=== PATIENT | male | born 1945 | race Caucasian/White ===

== ENCOUNTER → 2016-09-02 | Outpatient (CLI) | payer OTHER | END | disposition home or self-care (01) | LOC: GMAB 10:12 | PROVIDERS: ATTEND Family Medicine | DX: C61 Malignant neoplasm of prostate (principal); I10 Essential (primary) hypertension ==

== ENCOUNTER → 2017-12-31 | Outpatient (CLI) | payer OTHER | LOC: GMAE 12:55 | PROVIDERS: ATTEND Family Medicine | DX: R00.0 Tachycardia, unspecified (principal) ==

== ENCOUNTER → 2018-04-07 | Outpatient (CLI) | payer OTHER | LOC: GMAE 11:33 | PROVIDERS: ATTEND Family Medicine | DX: D50.0 Iron deficiency anemia secondary to blood loss (chronic) (principal) ==

== ENCOUNTER 2018-04-21 22:34 | Emergency (ER) | payer OTHER ==
--- NOTE | 2018-04-21 23:17 | ED.PDOC ---
History of Present Illness - General Chief Complaint: General Stated Complaint: WEAK FOR 4 DAYS Time Seen by Provider: 04/21/18 23:00 Source: patient Exam Limitations: no limitations - History of Present Illness Initial Comments: Patient presents because he was having anxiety about his hemoglobin level that he got today from Dr. Arguelles. The patient says that the blood was drawn two weeks ago so he is worried that it may have gone down even more. He first was diagnosed with anemia last month after he had an AMI and was awaiting a CABG. He says he was given blood at that time. After the surgery, he reports that a GI doctor did a colonoscopy and did not find anything but found two polyps in his stomach that were bleeding. They were removed. Patient has been on Plavix since the CABG. No symptoms at this time. His blood pressure went up when he started to get anxious. Timing/Duration: unsure Severity: moderate Improving Factors: nothing, eating Associated Symptoms: denies symptoms Allergies/Adverse Reactions: Allergies NO KNOWN ALLERGY Allergy (Verified 04/22/18 00:06) Home Medications: Ambulatory Orders Acetaminophen W/ Codeine [Tylenol W/ CODEINE #3] 1 ea PO Q4HR PRN 04/21/18 Aspirin [Aspirin EC Low Dose] 81 mg PO DAILY 04/21/18 Atorvastatin Calcium 40 mg PO DAILY 04/21/18 Metformin HCl [Metformin Hydrochloride] 500 mg PO BID 04/21/18 Metoprolol Tartrate 12.5 mg PO BID 04/21/18 Pantoprazole Sodium 40 mg PO DAILY 04/21/18 Potassium Chloride [Micro-K] 10 meq PO DAILY 04/21/18 Review of Systems - Review of Systems Constitutional: States: no symptoms reported EENTM: States: no symptoms reported Respiratory: States: no symptoms reported Cardiology: States: no symptoms reported Gastrointestinal/Abdominal: States: no symptoms reported Genitourinary: States: no symptoms reported Musculoskeletal: States: no symptoms reported Skin: States: no symptoms reported Neurological: States: no symptoms reported Endocrine: States: no symptoms reported Hematologic/Lymphatic: States: see HPI Family Medical History - Family History Mother Family History: Unknown Physical Exam - Physical Exam General Appearance: Alert Eye Exam: bilateral normal Ears, Nose, Throat: normal ENT inspection Neck: non-tender, full range of motion, supple Respiratory: lungs clear, normal breath sounds Cardiovascular/Chest: normal peripheral pulses, regular rate, rhythm, no edema Gastrointestinal/Abdominal: normal bowel sounds, non tender, soft Back Exam: normal inspection, no CVA tenderness Extremity: normal range of motion, non-tender, normal inspection Neurologic: no motor/sensory deficits, alert, normal mood/affect, oriented x 3 Skin Exam: normal color Lymphatic: no adenopathy Progress - Progress Progress: 04/22/18 00:18 Laboratory Tests 04/21/18 04/21/18 04/21/18 23:13 23:22 23:22 WBC 4.6 L RBC 3.76 L Hgb 9.3 L Hct 29.5 L MCV 78.4 L MCH 24.7 L MCHC 31.4 L RDW 18.4 H Plt Count 522 H MPV 7.0 L Absolute Neuts (auto) 2.80 Absolute Lymphs (auto) 1.00 Absolute Monos (auto) 0.50 Absolute Eos (auto) 0.20 Absolute Basos (auto) 0.10 Neutrophils % 60.9 Lymphocytes % 21.5 Monocytes % 11.0 H Eosinophils % 5.1 H Basophils % 1.5 Sodium 137 Potassium 3.7 Chloride 102 Carbon Dioxide 28 Anion Gap 10.7 L BUN 9 Creatinine 0.70 BUN/Creatinine Ratio 12.9 Random Glucose 124 H Serum Osmolality 273.9 L Calcium 9.4 Total Bilirubin 0.3 AST 19 ALT 23 Alkaline Phosphatase 77 Serum Total Protein 7.5 Albumin 3.9 Globulin 3.6 H Albumin/Globulin Ratio 1.1 Urine Color Yellow Urine Appearance Clear Urine pH 7.0 Ur Specific [place] 1.015 Urine Protein Negative Urine Glucose (UA) Negative Urine Ketones Negative Urine Blood Negative Urine Nitrite Negative Urine Bilirubin Negative Urine Urobilinogen 0.2 Ur Leukocyte Esterase Negative Urine RBC 0 Urine WBC 0-1 Ur Epithelial Cells 0 Urine Bacteria 0 hb 9.3. This represents a decrease of approximately 0.7 points in two weeks. This is a chronic issue. The patient does not appear to have symptoms requiring immediate transfusion so after discussing with him the options, we agreed that he would call Dr. Arguelles in the morning to see if he should get a blood transfusion or have his Hb/Hct monitored on a weekly basis. He does have an appointment with a GI doctor in 5 days. He was given alprazolam 0.5 mg po x one in the E.D. for th anxiety that he is feeling because of his recent lab results. Care instructions given. E.R. warnings given. Questions were elicited and answered. Patient voiced understanding and agreement with the plan. Departure - Departure Clinical Impression: Anemia, Anxiety about health Disposition: Discharge to Home or Self Care Condition: Good Departure Forms: ED Discharge - Pt. Copy, Patient Portal Self Enrollment Diet: resume usual diet Activity: increase activity as tolerated Home Medications: Ambulatory Orders Acetaminophen W/ Codeine [Tylenol W/ CODEINE #3] 1 ea PO Q4HR PRN 04/21/18 Aspirin [Aspirin EC Low Dose] 81 mg PO DAILY 04/21/18 Atorvastatin Calcium 40 mg PO DAILY 04/21/18 Metformin HCl [Metformin Hydrochloride] 500 mg PO BID 04/21/18 Metoprolol Tartrate 12.5 mg PO BID 04/21/18 Pantoprazole Sodium 40 mg PO DAILY 04/21/18 Potassium Chloride [Micro-K] 10 meq PO DAILY 04/21/18 Additional Instructions: Call Dr. Arguelles in the morning and see if he recommends a blood transfusion or more frequent monitoring. Return to the E.R. for black or red stools, vomiting blood, fainting, nausea, copious sweating while at rest, or increasing shortness of breath.
[2018-04-21 23:24] VITALS: TEMP 97.6; O2SAT 97
[2018-04-22] MEDS ORDERED: ALPRAZolam 0.25 MG TAB PO ONE (00:18)
[2018-04-22 00:33] VITALS: BP 182/106
== END 2018-04-22 00:33 | disposition home or self-care (01) ==
LOC: ER 22:34
DX: D64.9 Anemia, unspecified (principal); F41.9 Anxiety disorder, unspecified; I25.2 Old myocardial infarction; Z79.02 Long term (current) use of antithrombotics/antiplatelets; Z95.1 Presence of aortocoronary bypass graft; Z79.82 Long term (current) use of aspirin; Z79.899 Other long term (current) drug therapy

== ENCOUNTER → 2018-09-13 | Outpatient (CLI) | payer OTHER | LOC: GMAE 11:05 | PROVIDERS: ATTEND Family Medicine | DX: I10 Essential (primary) hypertension (principal); E78.2 Mixed hyperlipidemia ==

== ENCOUNTER → 2019-02-14 | Outpatient (CLI) | payer OTHER | END | disposition home or self-care (01) | LOC: GMAE 10:17 | PROVIDERS: ATTEND Family Medicine | DX: I10 Essential (primary) hypertension (principal); E78.2 Mixed hyperlipidemia; E11.9 Type 2 diabetes mellitus without complications ==

== ENCOUNTER → 2019-09-28 | Outpatient (CLI) | payer OTHER | LOC: GMAE 14:47 | PROVIDERS: ATTEND Family Medicine | DX: D50.9 Iron deficiency anemia, unspecified (principal) ==

== ENCOUNTER → 2020-02-28 | Outpatient (CLI) | payer OTHER | LOC: GMAE 10:52 | PROVIDERS: ATTEND Family Medicine | DX: Z12.5 Encounter for screening for malignant neoplasm of prostate (principal) ==